=== PATIENT | male | born 1960 | race Two or more races ===

== ENCOUNTER 2020-06-12 00:23 | Emergency (ER) | payer BC ==
[~2020-06-12] VITALS: Ht 177.8 cm; Wt 100.0 kg
[2020-06-12] MEDS ORDERED: UNABLE MC (00:38)
--- NOTE | 2020-06-12 00:41 | PHYS DOC ---
General Adult EDM: Chief Complaint: ABDOMINAL PAIN HPI: HPI: Patient is a 59 year old male presents for evaluation of dizziness nausea and vomiting. 2 hours prior to arrival patient states he started to feel dizzy. Patient denies any exacerbating factors. Dizziness was not exacerbated with head movem ent or improved with remaining still. Patient also states he had some visual changes. Patient had nausea and vomited 2 times prior to arrival. Patient denied any headache chest pain or shortness of breath. He denies any COVID-like symptoms such as runny nose stuffy nose cough fever chills or muscle aches. On arrival patient is alert and oriented x4. He has no focal weakness. He did have an emesis bag that was filled with approximately 200 to 300 cc of emesis. He was alert and oriented x4 his vital signs are stable. Review of Systems: Review of Systems: Constitutional: Denies fever or chills. [] Eyes: Denies change in visual acuity. [] HENT: Denies nasal congestion or sore throat. [] Respiratory: Denies cough or shortness of breath. [] Cardiovascular: Denies chest pain or edema. [] GI: Denies abdominal pain, , bloody stools or diarrhea. [Positive nausea positive vomiting] : Denies dysuria. [] Musculoskeletal: Denies back pain or joint pain. [] Integument: Denies rash. [] Neurologic: Denies headache, focal weakness or sensory changes. [Positive dizziness] Endocrine: Denies polyuria or polydipsia. [] Lymphatic: Denies swollen glands. [] Psychiatric: Denies depression or anxiety. [] Heart Score: Risk Factors: Risk Factors: DM, Current or recent (<one month) smoker, HTN, HLP, family history of CAD, obesity. Risk Scores: Score 0 - 3: 2.5% MACE over next 6 weeks - Discharge Home Score 4 - 6: 20.3% MACE over next 6 weeks - Admit for Clinical Observation Score 7 - 10: 72.7% MACE over next 6 weeks - Early Invasive Strategies Allergies: Allergies: Allergies Coded Allergies Type Severity Reaction Last Updated Verified No Known Drug Allergies 06/12/20 No Physical Exam: PE: Constitutional: Well developed, well nourished, no acute distress, non-toxic appearance. [] HENT: Normocephalic, atraumatic, bilateral external ears normal, oropharynx moist, no oral exudates, nose normal. [] Eyes: PERRLA, EOMI, conjunctiva normal, no discharge. [] Neck: Normal range of motion, no tenderness, supple, no stridor. [] Cardiovascular:Heart rate regular rhythm, no murmur [] Lungs & Thorax: Bilateral breath sounds clear to auscultation [] Abdomen: Bowel sounds normal, soft, no tenderness, no masses, no pulsatile masses. [] Skin: Warm, dry, no erythema, no rash. [] Back: No tenderness, no CVA tenderness. [] Extremities: No tenderness, no cyanosis, no clubbing, ROM intact, no edema. [] Neurologic: Alert and oriented X 3, normal motor function, normal sensory function, no focal deficits noted. [] Psychologic: Affect normal, judgement normal, mood normal. [] EKG: EKG: EKG performed at 0031 hours. Heart rate [address] elevation no ST depression no acute NH [] Radiology/Procedures: Radiology/Procedures: [] Impression: Exposure: One or more of the following individualized dose reduction techniques were utilized for this examination: 1. Automated exposure control 2. Adjustment of the mA and/or kV according to patient size 3. Use of iterative reconstruction technique. Ventricular systems are symmetric and not dilated. No midline shift is seen. There is no evidence of intracranial hemorrhage, infarct, mass or edema. No abnormalities are seen at the orbits. The paranasal sinuses and mastoid air cells are clear. No acute abnormality seen in the skull. IMPRESSION: No acute intracranial abnormality evident. Electronically signed by: Merle Elizabeth MD (06/12/2020 1:19 AM) [facility] Course & Med Decision Making: Course & Med Decision Making Pertinent Labs and Imaging studies reviewed. (See chart for details) [] Patient was evaluated for chief complaint. Work-up consisted of laboratory analysis radiologic imaging and EKG. Results reviewed and discussed with patient and coworker. CT head within normal limits EKG within normal limits labs within normal limits. Treatment included Zofran and IV fluids. Patient states he feels better. I discussed hospitalization versus discharge. Patient states he feels comfortable going home. Patient ambulated with a steady gait. When talking to the patient he does seem to have a runny stuffy nose. COVID test will be obtained. Patient will be discharged home with prescription Zofran and meclizine. Dragon Disclaimer: Dragon Disclaimer: This electronic medical record was generated, in whole or in part, using a voice recognition dictation system. Departure Departure Impression: Primary Impression: Dizziness Additional Impression: Nausea & vomiting Disposition: 01 HOME, SELF-CARE Condition: STABLE Patient Instructions: Dizziness, Nausea and Vomiting Additional Instructions: Definicin Se le realiz la prueba de deteccin del COVID-19 o se le diagnostic dicha enfermedad. Es joseph infeccin ocasionada por un nuevo tipo de coronavirus. En la mayora de los casos, el COVID-19 provoca sntomas similares a los del resfriado. En algunas personas, puede ocasionar sntomas ms graves, mikhail problemas respiratorios. No existe un tratamiento para el virus COVID-19. El cuerpo elimina la infeccin con el tiempo. El cuidado personal ayuda a aliviar el malestar. Pasos que debe seguir 1. Cuidados personales Descanse cuando sea necesario. Los hbitos saludables pueden ayudarlo a sentirse mejor. Algunas medidas para lograr cambios incluyen lo siguiente: - Elija alimentos saludables, mikhail frutas y verduras. Danielle abundante cantidad de agua elle todo el da. - Duerma brandyn por la noche. - Si fuma, intente no hacerlo. Aynor ayudar a mejorar la respiracin. - Evite el alcohol. 2. Mantenga sanos a los dems El virus puede contagiarse a otras personas. Cada vez que estornuda o tose, se liberan gotitas. Las gotitas pueden entrar en la boca, la nariz o los ojos de las p ersonas que se encuentran cerca de usted y ocasionar la infeccin. Para reducir las probabilidades de contagiar el virus COVID-19 a otros, tenga en cuenta lo siguiente: - Qudese en casa el tiempo que el mdico se lo indique. Es posible que deba quedarse en casa hasta que la enfermedad desaparezca. Salga nicamente para recibir atencin mdica o en sheila de urgencia. - Evite las reas pblicas, los eventos o el transporte pblico. No reanude las actividades laborales o escolares hasta que el mdico lo autorice. - Llame previamente si necesita asistir a un centro mdico. Avise que es posible que haya contrado COVID-19. Aynor ayudar a que le indiquen adonde debe dirigirse. Richie pueden pedirle que use joseph mscara facial cuando vaya al consultorio. Si llama a los servicios de asistencia mdica de urgencias, avseles que es posible que haya contrado COVID-19. Mientras est en casa: - Evite el contacto directo con otras personas. Mantngase a joseph distancia aproximada de 2 metros. Si es posible, pasen la mayor parte del tiempo en duque separadas. - Use joseph mscara facial si estar en contacto directo con otras personas, por ejemplo, si compartir joseph habitacin o un vehculo. - Pida a alguien que limpie las superficies comunes de la casa. Limpie picaportes, mesadas y lavamanos con limpiadores domsticos todos los watt. - Al toser o estornudar, cbrase con un pauelo de papel. Despus de usarlo, deschelo de inmediato. Si no tiene un pauelo de papel, tosa o estornude en el pliegue del codo. - Lvese las amrit con frecuencia. Lvese las amrit despus de estornudar o toser. Lvese con agua y jabn elle, al menos, 20 segundos. Si no dispone de agua y jabn, use un limpiador de amrit a base de alcohol. - No cocine para otros. Evite compartir objetos personales, mikhail tenedores, cucharas o cepillos de dientes. - Mientras est enfermo, evite el contacto directo con las mascotas. No hay indicios de si el virus se transmite a las mascotas. Esta es joseph medida de seguridad que debe tenerse en cuenta hasta que se sepa ms acerca de jaydon virus. El aislamiento puede ser frustrante. La interaccin social puede ayudar. Mant ngase en contacto con amigos y familiares por telfono u otros medios tecnolgicos. Puede interactuar con otras personas en el hogar, casey mantenga joseph distancia merrill de aproximadamente 2 metros. Seguimiento Las pruebas para confirmar la presencia del COVID-19 pueden demorar algunos watt. Es posible que deba seguir los pasos mencionados anteriormente hasta que estn los res ultados de las pruebas. Lo llamarn del consultorio mdico para saber si davila habido algn cambio en pelletier dung. Tambin le avisarn cuando pueda volver a estar cerca de otras personas. Problemas a los que debe estar atento Comunquese con el mdico si no se recupera segn lo previsto o si tiene problemas mikhail los siguientes: - Dificultad para respirar - Dolor de pecho - Empeoramiento de los sntomas Si cindy que tiene joseph urgencia, llame a los servicios de asistencia mdica de urgencias de inmediato. As taken from [employer] Ondansetron Hcl (ZOFRAN) 4 Mg Tablet 1 TAB PO Q6HRS, #20 TAB Prov: ADRY HU I DO 06/12/20 Meclizine Hcl (MECLIZINE HCL) 25 Mg Tablet 25 MG PO Q6-8HRS for 10 Days, #20 TAB Prov: ADRY HU I DO 06/12/20 Justicifation of Admission Dx: Justifications for Admission: Justification of Admission Dx: N/A ADRY HU I DO Jun 12, 2020 00:41
[2020-06-12 00:46] LABS: BASO # 0.1 x10^3/uL (0.0-0.2); BASO % 1 % (0-3); EOS # 0.1 x10^3/uL (0.0-0.7); EOS % 2 % (0-3); HEMOGLOBIN 14.1 g/dL (13.0-17.5); LYMPH # 2.5 x10^3/uL (1.0-4.8); LYMPH % 42 % (24-48); MEAN CORPUSCULAR HEMOGLOBIN 30 pg (25-35); MEAN CORPUSCULAR HGB CONC 34 g/dL (31-37); MEAN CORPUSCULAR VOLUME 87 fL (79-100); MONO # 0.5 x10^3/uL (0.0-1.1); MONO % 9 % (0-9); NEUT # 2.6 x10^3/uL (1.8-7.7); NEUT % 45 % (31-73); PLATELET COUNT 179 x10^3/uL (140-400); RED BLOOD COUNT 4.69 x10^6/uL (4.30-5.70); RED CELL DISTRIBUTION WIDTH 12.9 % (11.5-14.5); WHITE BLOOD COUNT 5.8 x10^3/uL (4.0-11.0)
[2020-06-12 00:55] LABS: CALCIUM 8.9 mg/dL (8.5-10.1); CREATININE 1.1 mg/dL (0.7-1.3); POTASSIUM 3.5 mmol/L (3.5-5.1)
[2020-06-12 01:00] LABS: ALBUMIN 4.2 g/dL (3.4-5.0); ALBUMIN/GLOBULIN RATIO 1.3 (1.0-1.7); TOTAL BILIRUBIN 0.4 mg/dL (0.2-1.0); TOTAL PROTEIN 7.5 g/dL (6.4-8.2)
[2020-06-12] MEDS ORDERED: ONDANSETRON PF 4 MG/2 ML VIAL. IVP ONE (01:00)
[2020-06-12] MEDS ORDERED: IV NORMAL SALINE 1000ML BAG 1,000 ML IV ONE (01:00)
--- NOTE | 2020-06-12 01:22 | RAD ---
CT head without contrast: Reason for examination: Dizziness. Axial images were obtained through the brain. No contrast was administered. Exposure: One or more of the following individualized dose reduction techniques were utilized for this examination: 1. Automated exposure control 2. Adjustment of the mA and/or kV according to patient size 3. Use of iterative reconstruction technique. Ventricular systems are symmetric and not dilated. No midline shift is seen. There is no evidence of intracranial hemorrhage, infarct, mass or edema. No abnormalities are seen at the orbits. The paranasal sinuses and mastoid air cells are clear. No acute abnormality seen in the skull. IMPRESSION: No acute intracranial abnormality evident. Electronically signed by: Merle Elizabeth MD (06/12/2020 1:19 AM) [facility]
--- NOTE | 2020-06-12 01:31 | EKG ---
[facility] [address] [place] [address] Test Date: 2020-06-12 Test Time: 00:31:27 Pat Name: PETER CROUCH Department: Room: Gender: Tax Agent: : [id number] Requested By: ADRY HU Order Number: [id number] Reading MD: Measurements Intervals [place] Rate: 79 P: 35 NV: 168 QRS: 29 QRSD: 86 T: 58 QT: 382 QTc: 439 Interpretive Statements SINUS RHYTHM OTHERWISE NORMAL ECG RI6.02 No previous ECG available for comparison
[2020-06-12] MEDS ORDERED: MECL-75 PO (02:11)
[2020-06-12] MEDS ORDERED: ONDA4TAB7 PO (02:11)
[2020-06-12 02:58] VITALS: BP 140/87
--- NOTE | 2020-06-13 13:58 | NUR ---
IP: Attempted to call COVD results, no answer. Left voicemail to return call.
--- NOTE | 2020-06-17 09:29 | NUR ---
IP: Pt returned call. Informed pt of negative COVID test. pt verbalized understanding.
== END 2020-06-12 03:20 | disposition home or self-care (01) ==
LOC: ER 00:23
DX: R42 Dizziness and giddiness (principal); R11.2 Nausea with vomiting, unspecified; H57.89 Other specified disorders of eye and adnexa; Z20.828 Contact with and (suspected) exposure to other viral communicable diseases
CPT/HCPCS: 36415; 70450; 80053; 83690; 84484; 85025; 93005; 96361; 96374; 99285; J2405; J7030; U0003